=== PATIENT | male | born 1950 | race Caucasian/White ===

== ENCOUNTER 2017-05-26 10:56 | Emergency (ER) | payer OTHER ==
[~2017-05-26] VITALS: Ht 180.3 cm; Wt 127.0 kg
[2017-05-26 11:32] LABS: HEMATOCRIT 36.4 % (42.0-52.0); HEMOGLOBIN 12.6 gm/dL (14.0-18.0); MCH 31.5 pg (26.0-34.0); MCHC 34.7 g/dL (28.0-37.0); MCV 90.9 fL (80.0-100.0); PLATELET COUNT 244 thou/uL (150-400); RBC 4.01 mil/uL (4.50-6.00); WBC 4.4 thou/uL (4.0-11.0)
[2017-05-26 11:37] LABS: MANUAL DIFF YES
[2017-05-26 11:44] LABS: ANION GAP 9 mmol/L (7-16); BUN 21 mg/dL (7-18); CALCIUM 9.1 mg/dL (8.5-10.1); CHLORIDE 102 mmol/L (98-107); CO2 25 mmol/L (21-32); CREATININE 0.9 mg/dL (0.7-1.3); GLUCOSE 110 mg/dL (74-106); POTASSIUM 4.3 mmol/L (3.5-5.1); SODIUM 136 mmol/L (136-145)
[2017-05-26 11:49] LABS: ALBUMIN 3.9 g/dL (3.4-5.0); ALKALINE PHOSPHATASE 58 U/L (46-116); DIRECT BILIRUBIN < 0.1 mg/dL (<0.1-0.3); SGOT 28 U/L (15-37); SGPT 31 U/L (30-65); TOTAL BILIRUBIN 0.3 mg/dL (<0.1-1.0); TOTAL PROTEIN 7.7 g/dL (6.4-8.2)
[2017-05-26 12:01] LABS: TOTAL CELL COUNT 100
[2017-05-26 12:02] LABS: ANISOCYTOSIS 1+
[2017-05-26] MEDS ORDERED: HYDROCODONE-APA1 TA1 PO (14:50)
[2017-05-26] MEDS ORDERED: NORFLEX100 MG PO (14:50)
[2017-05-26] MEDS ORDERED: SENOKOT-S1 TA1 PO (14:50)
[2017-05-26 15:29] VITALS: BP 154/70
== END 2017-05-26 15:36 | disposition home or self-care (01) ==
LOC: ER 10:56
PROVIDERS: Emergency Medicine
DX: S39.012A Strain of muscle, fascia and tendon of lower back, initial encounter (principal); S16.1XXA Strain of muscle, fascia and tendon at neck level, initial encounter; Z88.8 Allergy status to other drugs, medicaments and biological substances; V89.2XXA Person injured in unspecified motor-vehicle accident, traffic, initial encounter; Y93.89 Activity, other specified; Y92.89 Other specified places as the place of occurrence of the external cause; Y99.8 Other external cause status